=== PATIENT | male | born 1960 | race Caucasian/White ===

== ENCOUNTER 2018-07-21 19:40 | Emergency (ER) | payer MEDICAID ==
[~2018-07-21] VITALS: Ht 180.3 cm; Wt 83.0 kg
[2018-07-21 19:46] VITALS: BP_SYST 132
[2018-07-21 20:08] VITALS: BP_SYST 128
== END 2018-07-21 20:08 | disposition home or self-care (01) ==
LOC: SED 19:40
DX: B02.9 Zoster without complications (principal); R03.0 Elevated blood-pressure reading, without diagnosis of hypertension
CPT/HCPCS: 99283

== ENCOUNTER 2022-01-25 20:41 | Emergency (ER) | payer MEDICAID ==
[~2022-01-25] VITALS: Ht 180.3 cm; Wt 83.5 kg
[2022-01-25 20:51] VITALS: BP_SYST 141
--- NOTE | 2022-01-25 20:57 | NUR ---
PT HERE FOR FEVER ON AND OFF X3 DAYS WITH BODY ACHES AND COUGH. PER PT TE LAST TIME HE TOOK TYLENOL WAS AT 1300, DENIES N/V/D PMH:DENIES PT AAOX4, NO SOB NOTED AND NAD. PT ASSISTED TO RM 4, REPORT GIVEN TO KASANDRA MOLINA
--- NOTE | 2022-01-25 20:57 | NUR ---
Patient to ER bed 04 to gown for evaluation. Side rails up. Report given to Mac MOLINA.
--- NOTE | 2022-01-25 21:00 | NUR ---
PT BIB SELF, AWAKE AND ALERT, AOX4. PERRLA. PT C/O COUGH, TEMP OF 102, AND BODY ACHE 5/10. PT DENIES N/V. VSS
--- NOTE | 2022-01-25 21:05 | NUR ---
MD DR MAYBERRY AT BEDSIDE
--- NOTE | 2022-01-25 21:37 | NUR ---
LAB CALLED RE: FLU A +. DR. MAYBERRY MADE AWARE.
[2022-01-25] MEDS ORDERED: OSEL75CA PO (21:49)
[2022-01-25] MEDS ORDERED: IBUP-1971 PO (21:49)
[2022-01-25] MEDS ORDERED: OSELTAMIVIR PHOSPHATE 75 MG CAPSULE PO ONE (22:00)
[2022-01-25] MEDS ORDERED: IBUPROFEN 800 MG TABLET PO ONE (22:00)
--- NOTE | 2022-01-25 22:03 | NUR ---
Note undone in EDM - 01/25/22 at 2208 by SAMM Patient given written and verbal discharge instructions and verbalizes understanding. ER discussed with patient the results and treatment provided. Patient in stable condition. ID arm band removed. Rx of Ibuprofen and Tamiflu given. Patient educated on pain management and to follow up with PMD. Pain Scale 2/10. Opportunity for questions provided and answered. Medication side effect fact sheet provided.
[2022-01-25 22:05] VITALS: BP_SYST 141
--- NOTE | 2022-01-25 22:06 | NUR ---
Patient given written and verbal discharge instructions and verbalizes understanding. ER MD DR MAYBERRY discussed with patient the results and treatment provided. Patient in stable condition. ID arm band removed. Rx of TAMIFLU AND MOTRIN given. Patient educated on pain management and to follow up with PMD. Pain Scale 3/10. Opportunity for questions provided and answered. Medication side effect fact sheet provided.
== END 2022-01-25 22:05 | disposition home or self-care (01) ==
LOC: SED 20:41
DX: J20.1 Acute bronchitis due to Hemophilus influenzae (principal); M79.10 Myalgia, unspecified site; R50.9 Fever, unspecified; Z79.899 Other long term (current) drug therapy; Z20.822 Contact with and (suspected) exposure to COVID-19
CPT/HCPCS: 36415; 71045; 99284; 87804 ×2; 87426; G9035